=== PATIENT | female | born 1950 | race Caucasian/White ===

== ENCOUNTER 2018-12-31 13:17 | Outpatient (CLI) | payer MEDICARE | END 2018-12-31 23:59 | disposition home or self-care (01) | LOC: CFH 13:17 | PROVIDERS: ATTEND Physician Assistant | DX: Z12.31 Encounter for screening mammogram for malignant neoplasm of breast (principal) | CPT/HCPCS: 77063; 77067 ==

== ENCOUNTER → 2019-04-02 | Outpatient (CLI) | payer MEDICARE | END | disposition home or self-care (01) | LOC: CFH 06:46 | PROVIDERS: ATTEND Physician Assistant | DX: R19.05 Periumbilic swelling, mass or lump (principal) | CPT/HCPCS: 76705 ==

== ENCOUNTER 2019-04-17 09:55 | Outpatient (CLI) | payer MEDICARE ==
[2019-04-17] MEDS ORDERED: OMNIPAQUE 350 MG/ML, 100ML BOTTLE ONE (15:14)
== END 2019-04-17 23:59 | disposition home or self-care (01) ==
LOC: CFH 09:55
PROVIDERS: ATTEND Physician Assistant
DX: R19.05 Periumbilic swelling, mass or lump (principal); M47.816 Spondylosis without myelopathy or radiculopathy, lumbar region
CPT/HCPCS: 74177; Q9967

== ENCOUNTER 2020-06-24 10:05 | Observation (INO) | payer MEDICARE ==
[~2020-06-24] VITALS: Ht 162.6 cm; Wt 86.4 kg
[~2020-06-24 10:05] MED LIST: BUPIVACAINE/EPI 0.5% 1:200K ONE
[2020-06-24] MEDS ORDERED: LACTATED RINGERS 1,000 ML IV SCH (10:52)
[2020-06-24] MEDS ORDERED: CITA40TA5 PO (10:54)
[2020-06-24] MEDS ORDERED: LOVA40TA2 PO (10:54)
[2020-06-24] MEDS ORDERED: LEVO88TA4 PO (10:54)
[2020-06-24] MEDS ORDERED: ASPI-496 PO (10:54)
[2020-06-24] MEDS ORDERED: CHLORHEXIDINE 15 ML UDC MM ONE (11:00)
[2020-06-24] MEDS ORDERED: CHLORHEXIDINE 15 ML UDC ONE (11:03)
[2020-06-24 11:23] VITALS: BP 121/72
[2020-06-24] MEDS ORDERED: FENTANYL PF 250 MCG/5ML ONE (12:52)
[2020-06-24] MEDS ORDERED: MIDAZOLAM 1 MG/ML, 2ML ONE (12:52)
[2020-06-24] MEDS ORDERED: SUCCINYLCHOLINE 20 MG/ML, 10ML ONE (12:54)
[2020-06-24] MEDS ORDERED: ROCURONIUM 10MG/ML,5ML ONE (12:54)
[2020-06-24] MEDS ORDERED: NEOSTIGMINE 1 MG/ML, 10ML ONE (12:54)
[2020-06-24] MEDS ORDERED: DEXAMETHASONE 4 MG/ML, 1ML ONE (12:54)
[2020-06-24] MEDS ORDERED: PROPOFOL 10 MG/ML, 20ML ONE (12:54)
[2020-06-24] MEDS ORDERED: CEFAZOLIN 1,000 MG ONE (12:54)
[2020-06-24] MEDS ORDERED: GLYCOPYRROLATE 0.2MG/1ML, 5ML ONE (12:54)
[2020-06-24] MEDS ORDERED: ONDANSETRON 2MG/ML, 2ML ONE (12:54)
[2020-06-24] MEDS ORDERED: ONDANSETRON 2MG/ML, 2ML IVPush PRN ×2 (14:00→16:00)
[2020-06-24] MEDS ORDERED: hydrALAzine 20 MG/ML, 1ML IV PRN (14:00)
[2020-06-24] MEDS ORDERED: ACETAMINOPHEN 325 MG TABLET PO PRN (14:00)
[2020-06-24] MEDS ORDERED: OXYcodone 5 MG/5 ML ORAL.SOL UDC PO PRN (14:00)
[2020-06-24] MEDS ORDERED: PROMETHAZINE 25 MG/ML, 1ML IVPush PRN (14:00)
[2020-06-24] MEDS ORDERED: LABETALOL 5MG/ML, 20ML IV PRN (14:00)
[2020-06-24] MEDS ORDERED: HYDROmorphone 1 MG/ML, 1ML INJ IVPush PRN (14:00)
[2020-06-24] MEDS ORDERED: PROMETHAZINE 25 MG SUPP PR PRN (14:00)
[2020-06-24] MEDS ORDERED: SUGAMMADEX 200 MG/2 ML IVPush ONE (15:30)
[2020-06-24] MEDS ORDERED: FENTANYL PF 100 MCG/2ML ONE ×2 (15:31→16:25)
[2020-06-24] MEDS: LABETALOL 5MG/ML, 20ML IVPush SCH (16:00)
[2020-06-24] MEDS ORDERED: HYDROcodone/APAP 5/325 TABLET PO PRN (16:00)
[2020-06-24] MEDS ORDERED: DIPHENHYDRAMINE 50 MG/ML, 1ML IV PRN (16:00)
[2020-06-24] MEDS ORDERED: MORPHINE SULFATE 4 MG/ML, 1ML IVPush PRN (16:00)
[2020-06-24] MEDS ORDERED: ACETAMINOPHEN 650 MG/20.3 ML UDC PO PRN (16:00)
[2020-06-24] MEDS ORDERED: KETOROLAC 30 MG/1 ML ONE (16:25)
[2020-06-24] MEDS: FENTANYL PF 100 MCG/2ML IV PRN ×3 (16:28→17:30)
[2020-06-24] MEDS: KETOROLAC 30 MG/1 ML IV PRN ×2 (16:30→22:50)
[2020-06-24] MEDS ORDERED: OXYcodone 5 MG/5 ML ORAL.SOL UDC ONE (17:34)
[2020-06-24] MEDS: POTASSIUM CHLORIDE 20 MEQ in D5%-0.45% NACL 1,000 ML IV SCH (18:50)
[2020-06-24 20:22] VITALS: BP 123/67
[2020-06-24] MEDS ORDERED: LOVASTATIN 40 MG TABLET PO SCH (21:00)
[2020-06-25 00:17] VITALS: BP 108/61
[2020-06-25 04:47] VITALS: BP 112/67
[2020-06-25] MEDS ORDERED: LEVOTHYROXINE 88 MCG TABLET PO SCH (06:00)
[2020-06-25 07:35] VITALS: BP 115/65
[2020-06-25] MEDS: LABETALOL 5MG/ML, 20ML IVPush SCH ×2 (08:00)
[2020-06-25] MEDS: POTASSIUM CHLORIDE 20 MEQ in D5%-0.45% NACL 1,000 ML IV SCH (08:18)
[2020-06-25] MEDS ORDERED: CITALOPRAM 20 MG TABLET PO SCH (09:00)
[2020-06-25] MEDS ORDERED: HYDR-3240 PO (10:10)
[2020-06-25] MEDS ORDERED: ONDA4TAB7 PO (10:11)
[2020-06-25] MEDS ORDERED: ENOXAPARIN 40 MG/0.4 ML SQ SCH (16:00)
== END 2020-06-25 10:40 | disposition home or self-care (01) ==
LOC: OUT 10:05 → 4NE 18:44 → OUT 21:41 → DCLOUNGE 06-25 10:30
PROVIDERS: ADMIT Surgery; ATTEND Surgery
DX: K43.0 Incisional hernia with obstruction, without gangrene (principal); E03.9 Hypothyroidism, unspecified; K66.0 Peritoneal adhesions (postprocedural) (postinfection); Z79.899 Other long term (current) drug therapy; Z85.41 Personal history of malignant neoplasm of cervix uteri; Z87.891 Personal history of nicotine dependence; Z91.040 Latex allergy status
CPT/HCPCS: 49653; 93005; 96374; C1781; G0378; J0330; J0690; J1100; J1885; J2250; J2405; J2704; J2710; J3010; J7120